=== PATIENT | female | born 1990 | race Caucasian/White ===

== ENCOUNTER → 2017-05-19 | Outpatient (CLI) | payer BC ==
[2017-05-19 10:53] VITALS: BP 127/80
[2017-05-19 11:38] VITALS: BP 124/67
--- NOTE | 2017-05-19 11:50 | Diagnostic Imaging Report ---
INDICATION: Left thyroid nodule. Sonographic guidance was provided for Dr. Reddy for a left thyroid nodule fine needle aspiration. Total of 3 passes were made. IMPRESSION: Sonographic guidance for left thyroid FNA performed by Dr. Reddy. Dictated by: Dictated on workstation # [id number]
== END ==
LOC: RAD 10:51
PROVIDERS: ATTEND Otolaryngology Otolaryngology/Facial Plastic Surgery
DX: D49.7 Neoplasm of unspecified behavior of endocrine glands and other parts of nervous system (principal)
CPT/HCPCS: 76942